=== PATIENT | male | born 1965 | race Caucasian/White ===

== ENCOUNTER 2020-04-10 21:53 | Inpatient (IN) ==
[2020-04-10] MEDS ORDERED: NITROGLYCERIN 2% OINT 1 INCH/GM PACK TOP ONE (22:28)
[2020-04-10] MEDS ORDERED: ONDANSETRON 4 MG/2 ML VIAL ONE (22:28)
[2020-04-10] MEDS ORDERED: ASPIRIN 325 MG TABLET ONE (22:28)
[2020-04-10] MEDS ORDERED: MORPHINE 4 MG/1 ML VIAL ONE (22:28)
[2020-04-10] MEDS ORDERED: ALUM/MAG/SIMETH/LIDO VISC 1:1 30 ML BOTTLE PO STA (22:30)
[2020-04-10] MEDS ORDERED: ASPIRIN 325 MG TABLET PO STA (22:30)
[2020-04-10] MEDS ORDERED: NITROGLYCERIN 2% OINT 1 INCH/GM PACK TOP STA (22:30)
[2020-04-10] MEDS ORDERED: MORPHINE 4 MG/1 ML VIAL IV STA (22:30)
[2020-04-10] MEDS ORDERED: ONDANSETRON 4 MG/2 ML VIAL IV STA (22:30)
[2020-04-10 22:49] LABS: Basophils # 0.1 10*3/uL (0.0-0.2); Basophils % 1.1 % (0.0-0.8); Eosinophils # 0.3 10*3/uL (0.0-0.87); Eosinophils % 2.2 % (0.00-10.9); Hematocrit 46.9 VOL% (42.0-52.0); Hemoglobin 16.1 GM/DL (14.0-18.0); Immature Granulocytes % 0.6 %; Immature Granulocytes Absolute 0.07 #; Lymphocytes # 5.4 10*3/uL (1.4-4.0); Lymphocytes % 44.1 % (21.2-54.2); Mean Corpuscular HGB Conc 34.3 GM/DL (32-36); Mean Corpuscular Volume 84.4 FL (87-102); Mean Platelet Volume 10.3 FL (9.6-12.0); Platelet Count 326 T/CUMM (130-400); Red Blood Count 5.56 MC/CUMM (3.8-5.5); Red Cell Distribution Width 12.7 % (9.3-17.3); White Blood Count 12.3 T/CUMM (4-12)
[2020-04-10 22:58] LABS: PT Patient Result 10.9 SECS (9.8-11.9)
[2020-04-10 23:07] LABS: Albumin 3.9 G/DL (3.4-5.0); Bilirubin,Total 0.4 MG/DL (0.2-1.0); Calcium 9.3 MG/DL (8.5-10.1); Osmolality,Calculated 280.4 MOS/KG (273-304); Total Protein 7.8 G/DL (6.4-8.3)
[2020-04-10] MEDS ORDERED: KETOROLAC 30 MG/1 ML VIAL IV STA (23:26)
[2020-04-10] MEDS ORDERED: METHOCARBAMOL 1,000 MG/10 ML VIAL IV STA (23:26)
[2020-04-10] MEDS ORDERED: DEXAMETHASONE 4 MG/1 ML VIAL IV STA (23:26)
[2020-04-10] MEDS ORDERED: GLUCAGON 1 MG VIAL IM PRN (23:50)
[2020-04-10] MEDS ORDERED: ACETAMINOPHEN 325 MG TABLET PO PRN (23:50)
[2020-04-10] MEDS ORDERED: DEXTROSE 50% 25 GM/50 ML VIAL IV PRN (23:50)
[2020-04-10] MEDS ORDERED: ONDANSETRON 4 MG/2 ML VIAL IV PRN (23:50)
[2020-04-11] MEDS ORDERED: HYDROmorphone 2 MG/1 ML VIAL IV STA (00:03)
[2020-04-11] MEDS ORDERED: HYDROmorphone 2 MG/1 ML VIAL IV ONE (00:06)
[2020-04-11] MEDS: MORPHINE 4 MG/1 ML VIAL IV PRN ×4 (02:53→21:09)
[2020-04-11] MEDS: SODIUM CHLORIDE 0.9% 1,000 ML IV SCH ×3 (02:53→23:05)
[2020-04-11 06:02] LABS: Basophils # 0.1 10*3/uL (0.0-0.2); Basophils % 0.4 % (0.0-0.8); Hematocrit 46.3 VOL% (42.0-52.0); Hemoglobin 15.7 GM/DL (14.0-18.0); Immature Granulocytes % 0.7 %; Immature Granulocytes Absolute 0.11 #; Lymphocytes # 0.9 10*3/uL (1.4-4.0); Lymphocytes % 5.1 % (21.2-54.2); Mean Corpuscular HGB Conc 33.9 GM/DL (32-36); Mean Corpuscular Volume 84.8 FL (87-102); Mean Platelet Volume 10.7 FL (9.6-12.0); Monocytes % 0.7 % (1.7-12.7); Neutrophils % 93.1 % (38.7-73.9); Platelet Count 314 T/CUMM (130-400); Red Blood Count 5.46 MC/CUMM (3.8-5.5); Red Cell Distribution Width 12.6 % (9.3-17.3); White Blood Count 16.6 T/CUMM (4-12)
[2020-04-11 06:25] LABS: Calcium 9.5 MG/DL (8.5-10.1)
[2020-04-11 06:27] LABS: Anisocytosis Slight; Band Neutrophils 9 % (0-10); Lymphocytes 10 % (20-55); Macrocytosis Slight; Platelet Estimate Normal; Segmented Neutrophils 81 % (50-85); Spherocytes Few; Total Cells Counted 100
[2020-04-11] MEDS ORDERED: ENOXAPARIN 100 MG/ML SYRINGE SUBCUT SCH (07:30)
[2020-04-11] MEDS: LOSARTAN 25 MG TABLET PO SCH (08:25)
[2020-04-11] MEDS: PANTOPRAZOLE 40 MG TABLET PO SCH (08:25)
[2020-04-11] MEDS: ASPIRIN EC 81 MG TABLET PO SCH (08:25)
[2020-04-11] MEDS ORDERED: DIAZEPAM 5 MG TABLET PO ONE (08:57)
[2020-04-11] MEDS ORDERED: MAGNESIUM SULF RIDER 2 GM in PREMIX 1 EACH IV PRN (08:57)
[2020-04-11] MEDS ORDERED: diphenhydrAMINE CAP 25 MG CAPSULE PO ONE (08:57)
[2020-04-11] MEDS ORDERED: POTASSIUM CHLORIDE RIDER 10 MEQ in PREMIX 1 EACH IV PRN (08:57)
[2020-04-11] MEDS ORDERED: ENOXAPARIN 40 MG/0.4 ML SYRINGE SUBCUT SCH (09:00)
[2020-04-11] MEDS ORDERED: ROSUVASTATIN 10 MG TABLET PO SCH (09:00)
[2020-04-11] MEDS ORDERED: METOPROLOL TARTRATE 25 MG TABLET PO SCH (09:00)
[2020-04-11] MEDS ORDERED: LIDOCAINE 1% 20 ML VIAL ONE (09:07)
[2020-04-11] MEDS ORDERED: HEPARIN/NACL 0.9% 2 UNITS/ML 1,000 ML IV ONE (09:07)
[2020-04-11] MEDS ORDERED: MIDAZOLAM 2 MG/2 ML VIAL ONE ×4 (09:59→11:19)
[2020-04-11] MEDS ORDERED: fentaNYL 100 MCG/2 ML VIAL ONE ×2 (10:00→10:44)
[2020-04-11] MEDS ORDERED: BIVALIRUDIN 250 MG VIAL IV ONE (10:32)
[2020-04-11] MEDS ORDERED: HEPARIN/NACL 0.9% 2 UNITS/ML 500 ML IV ONE (10:45)
[2020-04-11] MEDS ORDERED: TICAGRELOR 90 MG TABLET ONE (11:25)
[2020-04-11] MEDS ORDERED: ASPIRIN CHEW 81 MG TABLET PO ONE (11:28)
[2020-04-11] MEDS ORDERED: ZALEPLON 5 MG CAPSULE PO PRN (11:48)
[2020-04-11] MEDS ORDERED: NITROGLYCERIN SL 0.4 MG TABLET SL PRN (11:48)
[2020-04-11] MEDS: NITROGLYCERIN 0.1 MG/HR PATCH TRANSDERM SCH (12:44)
[2020-04-11] MEDS: carvediloL 6.25 MG TABLET PO SCH (21:09)
[2020-04-11] MEDS: ATORVASTATIN 80 MG TABLET PO SCH (21:09)
[2020-04-11] MEDS: TICAGRELOR 90 MG TABLET PO SCH (21:09)
[2020-04-12 05:29] LABS: Basophils % 0.2 % (0.0-0.8); Eosinophils % 0.1 % (0.00-10.9); Hematocrit 43.1 VOL% (42.0-52.0); Hemoglobin 14.5 GM/DL (14.0-18.0); Immature Granulocytes % 0.7 %; Immature Granulocytes Absolute 0.13 #; Lymphocytes # 2.3 10*3/uL (1.4-4.0); Lymphocytes % 12.3 % (21.2-54.2); Mean Corpuscular HGB Conc 33.6 GM/DL (32-36); Mean Corpuscular Volume 85.3 FL (87-102); Mean Platelet Volume 10.4 FL (9.6-12.0); Monocytes % 9.5 % (1.7-12.7); Neutrophils % 77.2 % (38.7-73.9); Platelet Count 293 T/CUMM (130-400); Red Blood Count 5.05 MC/CUMM (3.8-5.5); Red Cell Distribution Width 13.2 % (9.3-17.3); White Blood Count 18.7 T/CUMM (4-12)
[2020-04-12] MEDS: ENOXAPARIN 40 MG/0.4 ML SYRINGE SUBCUT SCH (05:40)
[2020-04-12 05:48] LABS: Calcium 9.2 MG/DL (8.5-10.1); Osmolality,Calculated 278.7 MOS/KG (273-304)
[2020-04-12 05:52] LABS: Risk Ratio 4.24; VLDL CHOLESTEROL 29.2 MG/DL
[2020-04-12 07:38] LABS: CKMB % 8.9 %
[2020-04-12 07:41] LABS: Troponin I 77.8 NG/ML (0.00-0.045)
[2020-04-12] MEDS: carvediloL 6.25 MG TABLET PO SCH ×2 (08:30→20:59)
[2020-04-12] MEDS: ASPIRIN EC 81 MG TABLET PO SCH (08:30)
[2020-04-12] MEDS: PANTOPRAZOLE 40 MG TABLET PO SCH (08:31)
[2020-04-12] MEDS: LOSARTAN 25 MG TABLET PO SCH (08:31)
[2020-04-12] MEDS: NITROGLYCERIN 0.1 MG/HR PATCH TRANSDERM SCH (08:31)
[2020-04-12] MEDS: TICAGRELOR 90 MG TABLET PO SCH ×2 (08:58→20:59)
[2020-04-12 13:14] LABS: Bilirubin,Urine Negative (Negative); Blood, Urine Negative (Negative); Glucose,Urine (UA) Negative (Negative); Ketones,Urine Negative (Negative); Mucus,Urine Occasional /LPF (Occasional); Nitrite,Urine Negative (Negative); Protein,Urine Negative; RBC,Urine <1 /HPF (0-4); Urine Appearance CLEAR (Clear); Urine Color Yellow (Yellow); Urine Specific Gravity 1.011 (1.001-1.035); Urine Urobilinogen < 2.0 EU/DL (0.2-1.0)
[2020-04-12] MEDS: ATORVASTATIN 80 MG TABLET PO SCH (20:59)
[2020-04-13 05:55] LABS: Basophils # 0.1 10*3/uL (0.0-0.2); Basophils % 0.7 % (0.0-0.8); Eosinophils # 0.1 10*3/uL (0.0-0.87); Eosinophils % 0.5 % (0.00-10.9); Hematocrit 43.1 VOL% (42.0-52.0); Hemoglobin 14.6 GM/DL (14.0-18.0); Immature Granulocytes % 0.7 %; Lymphocytes % 22.4 % (21.2-54.2); Mean Corpuscular HGB Conc 33.9 GM/DL (32-36); Mean Corpuscular Volume 84.7 FL (87-102); Monocytes % 9.6 % (1.7-12.7); Neutrophils % 66.1 % (38.7-73.9); Platelet Count 278 T/CUMM (130-400); Red Blood Count 5.09 MC/CUMM (3.8-5.5); White Blood Count 13.3 T/CUMM (4-12)
[2020-04-13] MEDS: ENOXAPARIN 40 MG/0.4 ML SYRINGE SUBCUT SCH (05:57)
[2020-04-13 06:19] LABS: CKMB % 2.2 %
[2020-04-13 06:22] LABS: Troponin I 38.9 NG/ML (0.00-0.045)
[2020-04-13 06:30] LABS: Calcium 9.1 MG/DL (8.5-10.1); Osmolality,Calculated 274.8 MOS/KG (273-304)
[2020-04-13 08:31] VITALS: BP 120/71
[2020-04-13] MEDS: LOSARTAN 25 MG TABLET PO SCH (08:55)
[2020-04-13] MEDS: NITROGLYCERIN 0.1 MG/HR PATCH TRANSDERM SCH (08:56)
[2020-04-13] MEDS: PANTOPRAZOLE 40 MG TABLET PO SCH (08:56)
[2020-04-13] MEDS: carvediloL 6.25 MG TABLET PO SCH (08:56)
[2020-04-13] MEDS: ASPIRIN EC 81 MG TABLET PO SCH (08:58)
[2020-04-13] MEDS: TICAGRELOR 90 MG TABLET PO SCH (08:58)
== END 2020-04-13 11:55 | disposition home or self-care (01) | DRG 247 ==
LOC: N.EDINP 21:53 → N.ED 21:53 → N.5E 04-11 00:29 → N.CC 04-11 07:11 → N.TELEN 04-11 15:38
PROVIDERS: ADMIT Internal Medicine; ATTEND Internal Medicine Cardiovascular Disease
PROC: CLCCHCL (ICD-10-PCS; 2020-04-11 10:45)